=== PATIENT | female | born 1940 | race Caucasian/White ===

== ENCOUNTER 2018-02-20 15:25 | Inpatient (IN) | payer MEDICARE, OTHER ==
--- NOTE | 2018-02-20 15:41 | ED Physician Documentation ---
PD HPI NVD - Stated complaint Stated Complaint: GENERAL WEAKNESS - Chief complaint Chief Complaint: General - History obtained from History obtained from: Patient - History of Present Illness Timing - onset: How many weeks ago (5-6 weeks progressive weakness and fatigue.) Timing - details: Gradual onset, Still present Associated symptoms: No: Fever, Abdominal pain (has just had poor appetite and feeling of nausea for weeks, with graudally worsening general weakness.) Contributing factors: No: Sick contact, Bad food, Travel (she is in her apartment most of the time, and has friends help her with groceries/etc. She does not use walker, but uses furniture to help support herself walking around the apartment.) Similar symptoms before: Has not had sx before Recently seen: Not recently seen (went to the [facility] today as she was having her apartment mold cleaned out, so needed to be out of there for 2 days. Went to [facility] for place to be and eval of the weakness. They did not do any labs or such, but tried to find licensed social worker help with place to stay. Transferred her to us for further evaluation.) Review of Systems Constitutional: denies: Fever, Chills, Myalgias Nose: denies: Rhinorrhea / runny nose, Congestion Throat: denies: Sore throat Cardiac: denies: Chest pain / pressure, Palpitations Respiratory: denies: Dyspnea, Cough GI: reports: Bloody / black stool (dark stools but attributed it to supplements she takes.) : denies: Dysuria, Frequency Skin: denies: Rash, Lesions Musculoskeletal: denies: Neck pain, Back pain Neurologic: reports: Generalized weakness. denies: Focal weakness, Numbness, Near syncope Psychiatric: denies: Depressed, Anxiety Endocrine: denies: Weight gain Immunocompromised: denies: Immunocompromised PD PAST MEDICAL HISTORY - Past Medical History Cardiovascular: None Respiratory: None Neuro: None GI: None Psych: Depression Derm: Herpes zoster - Past Surgical History Past Surgical History: No - Present Medications Home Medications: Ambulatory Orders Medication Instructions Recorded Confirmed Cholecalciferol (Vitamin D3) 10,000 units PO DAILY 02/20/18 02/20/18 [Vitamin D3] - Allergies Allergies/Adverse Reactions: Allergies Allergy/AdvReac Type Severity Reaction Status Date / Time No Known Drug Allergies Allergy Verified 02/20/18 15:27 - Social History Does the pt smoke?: No Smoking Status: Never smoker Does the pt drink ETOH?: No Does the pt have substance abuse?: No PD ED PE NORMAL - Vitals Vital signs reviewed: Yes - General General: Alert and oriented X 3, No acute distress, Well developed/nourished - HEENT HEENT: Ears normal, Pharynx benign - Neck Neck: Supple, no meningeal sign, No adenopathy - Cardiac Cardiac: RRR, No murmur - Respiratory Respiratory: No respiratory distress, Clear bilaterally - Abdomen Abdomen: Normal bowel sounds, Soft, Non tender, Non distended - Female Female : Deferred - Rectal Rectal: Other (dark brown stool in vault, but it does test trace/speckled guiac positive. ) - Back Back: No CVA TTP - Derm Derm: Warm and dry. No: Normal color (very pale coloring) - Extremities Extremities: No deformity, No tenderness to palpate - Neuro Neuro: Alert and oriented X 3, No motor deficit, Normal speech - Psych Psych: Normal mood, Normal affect Results - Vitals Vitals: Vital Signs - 24 hr 02/20/18 15:23 Temperature 37.3 C Heart Rate 105 H Respiratory 18 Rate Blood Pressure 120/65 O2 Saturation 97 - EKG (time done) 16:54 Rate: Rate (enter#) (104) Rhythm: Sinus tachycardia [place]: Normal Intervals: Normal DE Ischemia: Normal ST segments. No: ST elevation c/w ischemia, ST depression - Labs Labs: Laboratory Tests 02/20/18 02/20/18 02/20/18 16:40 16:40 16:40 WBC 5.1 RBC 1.35 L Hgb 5.3 L* Hct 15.4 L* MCV 113.8 H MCH 38.9 H MCHC 34.2 RDW 15.0 Plt Count 43 L MPV 10.1 Neut # Not Reportable Lymph # Not Reportable [place] # Not Reportable Eos # Not Reportable Baso # Not Reportable Absolute Nucleated RBC Not Reportable Total Counted 100 Band Neuts % (Manual) 12 H Abnorm Lymph % (Manual) 0 Promyelocytes % 15 H Blast Cells % 12 H* Nucleated RBC % Not Reportable Neutrophils # (Manual) 2.2 Lymphocytes # (Manual) 0.9 L Monocytes # (Manual) 0.6 Eosinophils # (Manual) 0.0 Basophils # (Manual) 0.0 Nucleated RBCs 1 Differential Comment MANUAL DIFFERENTIAL Platelet Estimate DECREASED (<130,000) Platelet Morphology 1+ GIANT PLATELETS RBC Morph Micro Appear 1+ POLYCHROMASIA Sodium 131 L Potassium 2.7 L Chloride 94 L Carbon Dioxide 27 Anion Gap 10.0 BUN 15 Creatinine 0.7 Estimated GFR (MDRD) 81 L Glucose 127 H Calcium 7.9 L Magnesium 1.9 Iron TIBC % Saturation Transferrin Total Bilirubin 0.9 AST 30 ALT 17 Alkaline Phosphatase 35 L Total Protein 7.5 Albumin 2.9 L Globulin 4.6 H Albumin/Globulin Ratio 0.6 L Lipase 11 L Vitamin B12 Folate TSH 2.12 Slides for Path Review Indicated Blood Type Blood Type Recheck Antibody Screen Crossmatch IS Only 02/20/18 02/20/18 02/20/18 16:40 16:40 16:40 WBC RBC Hgb Hct MCV MCH MCHC RDW Plt Count MPV Neut # Lymph # [place] # Eos # Baso # Absolute Nucleated RBC Total Counted Band Neuts % (Manual) Abnorm Lymph % (Manual) Promyelocytes % Blast Cells % Nucleated RBC % Neutrophils # (Manual) Lymphocytes # (Manual) Monocytes # (Manual) Eosinophils # (Manual) Basophils # (Manual) Nucleated RBCs Differential Comment Platelet Estimate Platelet Morphology RBC Morph Micro Appear Sodium Potassium Chloride Carbon Dioxide Anion Gap BUN Creatinine Estimated GFR (MDRD) Glucose Calcium Magnesium Iron 53 TIBC 251 % Saturation 21 Transferrin 179 L Total Bilirubin AST ALT Alkaline Phosphatase Total Protein Albumin Globulin Albumin/Globulin Ratio Lipase Vitamin B12 664 Folate 42.00 TSH Slides for Path Review Blood Type Blood Type Recheck A POSITIVE Antibody Screen Crossmatch IS Only 02/20/18 17:02 WBC RBC Hgb Hct MCV MCH MCHC RDW Plt Count MPV Neut # Lymph # [place] # Eos # Baso # Absolute Nucleated RBC Total Counted Band Neuts % (Manual) Abnorm Lymph % (Manual) Promyelocytes % Blast Cells % Nucleated RBC % Neutrophils # (Manual) Lymphocytes # (Manual) Monocytes # (Manual) Eosinophils # (Manual) Basophils # (Manual) Nucleated RBCs Differential Comment Platelet Estimate Platelet Morphology RBC Morph Micro Appear Sodium Potassium Chloride Carbon Dioxide Anion Gap BUN Creatinine Estimated GFR (MDRD) Glucose Calcium Magnesium Iron TIBC % Saturation Transferrin Total Bilirubin AST ALT Alkaline Phosphatase Total Protein Albumin Globulin Albumin/Globulin Ratio Lipase Vitamin B12 Folate TSH Slides for Path Review Blood Type A POSITIVE Blood Type Recheck Antibody Screen NEGATIVE Crossmatch IS Only See Detail - Rads (name of study) chest xray Radiology: Prelim report reviewed, EMP read contemporaneously (no infiltrates) PD MEDICAL DECISION MAKING - ED course Complexity details: reviewed results, considered differential (could be dietary anemia but does have guiac positive traces so presume chronic and acute blood loss. She was having to be out of her apartment due to mold cleaning, which fortunately triggered her to get care for this weakness. ), d/w patient Departure - Departure Disposition: 66 [facility] DC/Xfer Clinical Impression: Guaiac positive stools, Hypokalemia, Generalized weakness Profound anemia Qualifiers: Anemia type: other cause Other causes of anemia: acute posthemorrhagic Qualified Code(s): D62 - Acute posthemorrhagic anemia Condition: Stable Record reviewed to determine appropriate education?: Yes Discharge Date/Time: 02/20/18 18:43
[2018-02-20 16:50] LABS: BASOPHILS % (AUTO) 0.2 %; EOSINOPHILS % (AUTO) 0.7 %; LYMPHOCYTES % (AUTO) 13.2 %; MEAN CORPUSCULAR HEMOGLOBIN 38.9 pg (27.0-31.0); MEAN CORPUSCULAR HGB CONC 34.2 g/dL (32.0-36.0); MEAN CORPUSCULAR VOLUME 113.8 fL (81.0-99.0); MEAN PLATELET VOLUME 10.1 fL (7.9-10.8); MONOCYTES % (AUTO) 42.1 %; NEUTROPHILS % (AUTO) 43.8 %; PLT - PLATELET COUNT 43 10^3/uL (130-450); RED BLOOD COUNT 1.35 10^6/uL (4.20-5.40); WHITE BLOOD COUNT 5.1 x10^3/uL (4.8-10.8)
[2018-02-20 16:52] LABS: HGB - HEMOGLOBIN 5.3 g/dL (12.0-16.0)
--- NOTE | 2018-02-20 16:53 | XRAY Preliminary Report ---
Exam: XR CHEST 2 VIEW X-RAY IMPRESSION: Multiple moderate patchy opacities are seen in the bilateral upper lobes most severe at t he lung apices, could represent infectious/inflammatory disease and/or areas of scarring/fibrosis. Orly ng malignancy is not excluded. Recommend a chest CT to further evaluate. [facility] SITE ID: [id number]
--- NOTE | 2018-02-20 16:53 | XRAY Report ---
EXAM: CHEST RADIOGRAPHY EXAM DATE: 02/20/2018 04:35 PM. CLINICAL HISTORY: Cough and fatigue. COMPARISON: None. TECHNIQUE: 2 views. FINDINGS: Lungs/Pleura: Multiple moderate patchy opacities are seen in the bilateral upper lobes most severe at the lung apices, could represent infectious/inflammatory disease and/or areas of scarring/fibrosis. Lung malignancy is not excluded. Recommend a chest CT to further evaluate. No pleural effusion or pne umothorax. Mediastinum: Heart size within normal limits. Mild deviation of the trachea to the right, could be du e to a tortuous aortic arch. IMPRESSION: Multiple moderate patchy opacities are seen in the bilateral upper lobes most severe at t he lung apices, could represent infectious/inflammatory disease and/or areas of scarring/fibrosis. Orly ng malignancy is not excluded. Recommend a chest CT to further evaluate. JUANJOSE Referring Provider Line: [phone] SITE ID: [id number]
[2018-02-20 16:54] LABS: ABNORMAL LYMPHS % (MANUAL) 0 %
[2018-02-20 17:00] LABS: ALBUMIN 2.9 g/dL (3.2-5.5); ALBUMIN/GLOBULIN RATIO 0.6 (1.0-2.2); BILIRUBIN,TOTAL 0.9 mg/dL (0.2-1.0); CALCIUM 7.9 mg/dL (8.5-10.3); CREATININE 0.7 mg/dL (0.4-1.0); MAGNESIUM 1.9 mg/dL (1.7-2.8); TOTAL PROTEIN 7.5 g/dL (6.7-8.2)
[2018-02-20 17:23] LABS: % IRON SATURATION 21 % (20-50); IRON 53 ug/dL (28-170); TOTAL IRON BINDING CAPACITY 251 ug/dL (250-450); TRANSFERRIN 179 mg/dL (192-382)
[2018-02-20] MEDS ORDERED: POTASSIUM CHLOR 10 MEQ/100 ML 10 MEQ/100 ML BAG IV ONE (17:27)
[2018-02-20] MEDS ORDERED: POTASSIUM BICARB 25 MEQ TABLET PO STA (17:27)
[2018-02-20 17:39] LABS: BAND NEUTROPHILS % (MANUAL) 12 %; LYMPHOCYTES # (MANUAL) 0.9 10^3/uL (1.5-3.5); LYMPHOCYTES % (MANUAL) 18 %; MONOCYTES # (MANUAL) 0.6 10^3/uL (0.0-1.0); NEUTROPHILS # (MANUAL) 2.2 10^3/uL (1.5-6.6); NEUTROPHILS % (MANUAL) 32 %
[2018-02-20 17:42] LABS: PLATELET MORPHOLOGY 1+ GIANT PLATELETS (NORMAL); PROMYELOCYTES % (MANUAL) 15 %
[2018-02-20 17:43] LABS: DIFFERENTIAL COMMENT MANUAL DIFFERENTIAL; PLATELET ESTIMATE, MANUAL DECREASED (<130,000) (NORMAL)
[2018-02-20] MEDS ORDERED: ONDANSETRON 4 MG/2 ML VIAL IVP PRN (18:11)
[2018-02-20] MEDS ORDERED: FUROSEMIDE 20 MG/2 ML VIAL IVP PRN (18:16)
[2018-02-20] MEDS ORDERED: diphenhydrAMINE 25 MG CAPSULE PO ONE (18:17)
[2018-02-20] MEDS ORDERED: IOPAMIDOL-300 100 ML VIAL ONE (18:44)
[2018-02-20] MEDS ORDERED: CEFEPIME 1 GM in SODIUM CHLORIDE 0.9% MINIBAG 100 ML IV SCH (19:00)
[2018-02-20] MEDS: POTASSIUM CHLOR 10 MEQ/100 ML 10 MEQ/100 ML BAG IV SCH ×3 (19:00→21:34)
--- NOTE | 2018-02-20 19:06 | HISTORY & PHYSICAL EXAMINATION ---
Chief Complaint - Chief Complaint Chief Complaint: profound weakness History of Present Illness - Admitted From Admitted From:: ER - History Obtained From History obtained from: pt - History of Present Illness HPI Comment/Other: This is a 77-year-old female with PMH of Depression, and Herpes Zoster, who, otherwise health until the last , presented to the emergency department complaining of profound weakness, a chronic cough and weight loss. Pt report she got sick in the last . She visited her naturopathic provider who started her on multiple supplementation including [id number] Vitamin C. Pt report she has been profound fatigue since the . She report she has been chronic cough with clear sputum as well. She state she lost weight between 5- 10 Lb since the , and loss of appetite, and some night sweating as well. She recognize she had dark stools but denies bryan blood in the stools since she had multiple supplementation. She denies fever, chill, chest pain, headache, shortness of breath, abdominal pain, PUD disease, nausea, vomiting, diarrhea, vision issue. She denies to take any NSAIDs. She denies recent travel as well. In the emergency department her H&H was noted to be 5.3/ 15.4. The occult blood stool test was positive in the ER. chest x-ray reveals multiple moderate patchy opacities in the bilateral upper lobes, most severe at the lung apices, which could represent infectious/inflammatory/fibrosis, lung malignancy is not excluded. Pt is currently hemodynamically stable with a normal blood pressure and heart rate. Pt was admitted to the medical service and presumed GI bleeding. History - Past Medical History Psych: reports: Depression Derm: reports: Herpes zoster - Family & Social History Family History: Mother: , CAD, Father: , Renal Disease/Failure, Sister: Alive and Well (without medical issue) Family History Comment/Other: pt is living alone at [place]. Living arrangement: At home Living Situation: Alone - Substance History Use: Uses substance without health or social issues: NONE Abuse: Recurrent use of substance despite neg consequences: NONE Dependence: Experiences withdrawal or developed tolerances: NONE - POLST Patient has POLST: No POLST Status: DNR Meds/Allgy - Home Medications Home Medications: Ambulatory Orders Medication Instructions Recorded Confirmed Cholecalciferol (Vitamin D3) 10,000 units PO DAILY 02/20/18 02/20/18 [Vitamin D3] - Allergies Allergies/Adverse Reactions: Allergies Allergy/AdvReac Type Severity Reaction Status Date / Time No Known Drug Allergies Allergy Verified 02/20/18 15:27 Review of Systems - Constitutional Constitutional: reports: Fatigue, Weakness, Poor appetite, Night sweats. denies : Fever, Chills, Malaise - Eyes Eyes: denies: Pain, Irritation, Amaurosis, Blurred vision, Spots in vision, Field loss, Vision loss, Dipolpia - Ears, Nose & Throat Ears, Nose & Throat: denies: Ear pain, Hearing loss, Hearing aids, Tinnitus, Vertigo, Nasal pain, Nasal discharge, Nosebleeds, Nasal congestion, Postnasal drainage, Dentures, Sore throat, Mouth lesions, Bleeding gums, Dental decay - Cardiovascular Cariovascular: denies: Irregular heart rate, Palpitations, Chest pain, Edema, Lightheadedness, Syncope, Exertional dyspnea, Decr. exercise tolerance, Orthopnea - Respiratory Respiratory: reports: Cough, Sputum production. denies: Wheezing, Snoring, Hemoptysis, Orthopnea, SOB at rest, SOB with exertion, Apnea, Pleuritic pain - Gastrointestinal Gastrointestinal: reports: Black stools. denies: Abdominal pain, Abdominal distention, Constipation, Diarrhea, Change in bowel habits, Rectal bleeding, Bloody stools, Nausea, Vomiting, Bile emesis, Bryan blood emesis, Coffee grounds emesis - Genitourinary Genitourinary: denies: Dysuria, Frequency, Urgency, Hematuria, Incontinence, Flank pain, Nocturia, Urethral discharge - Musculoskeletal Musculoskeletal: denies: Muscle pain, Back pain, Muscle aches, Stiffness, Limited range of motion, Muscle weakness, Gout, Joint pain, Joint swelling - Integumentary Integumentary: denies: Rash, Lesions, Dryness, Lumps, Pigment changes - Neurological Neurological: reports: General weakness. denies: Focal weakness, Headache, Dizziness, Numbness, Pre-existing deficit, Abnormal gait, Seizures, Incoordination, Slurred speech - Psychiatric Psychiatric: denies: Depression, Anxiety, Suicidal, Delusions, Hallucinations, Homicidal - Endocrine Endocrine: denies: Polyuria, Polydypsia, Polyphagia, Intolerance to cold, Intolerance to heat - Hematologic/Lymphatic Hematologic/Lymphatic: denies: Bruising, Petechiae, Blood clots, Lymphadenopathy , Bleeding tendencies Exam - Vital Signs Reviewed Vital Signs: Yes - Physical Exam General Appearance: positive: No acute distress, Alert. negative: Lethargic Eyes Bilateral: positive: Normal inspection, PERRL, No lid inflammation, Conjunctivae nml ENT: positive: ENT inspection nml, Pharynx nml, No signs of dehydration. negative: Purulent nasal drainage, Pharyngeal erythema, Oral lesions, Dry mucous membranes Neck: positive: Nml inspection, Thyroid nml, No JVD, Trachea midline. negative : Thyromegaly, Lymphadenopathy (R), Lymphadenopathy (L), Stiff neck, Carotid bruit, Swelling/bruising, Tracheal deviation Respiratory: positive: Chest non-tender, No respiratory distress, Breath sounds nml. negative: Wheezes, Rales, Rhonchi Cardiovascular: positive: Regular rate & rhythm, No murmur, No gallop. negative : Irregularly irregular, Extrasystoles, Tachycardia, Bradycardia, JVD present, Systolic murmur, Diastolic murmur Peripheral Pulses: positive: 2+ Abdomen: positive: Non-tender, No organomegaly, Nml bowel sounds, No distention. negative: Tenderness, Guarding, Rebound Back: positive: Nml inspection. negative: CVA tenderness (R), CVA tenderness (L ) Skin: positive: Color nml, No rash, Warm, Dry, Pallor. negative: Cyanosis, Diaphoresis Extremities: positive: Non-tender, Full ROM, Nml appearance. negative: Calf tenderness, Joint swelling, Ariana's sign/cords Neurologic/Psychiatric: positive: Oriented x3, Sensation nml, Mood/affect nml. negative: Sensory loss, Facial droop, Slurred/abnml speech, Depressed mood/ affect Conclusion/Plan - Problem List (1) Profound anemia Conclusion/Plan: Pt's H&H is 5/15 at ER, profound weakness. transfusion blood iron study, B12, folic acid continue H&H continue lab, monitor hold all pt's home supplements Qualifiers: Anemia type: other cause Other causes of anemia: acute posthemorrhagic Qualified Code(s): D62 - Acute posthemorrhagic anemia (2) Guaiac positive stools Conclusion/Plan: consult with surgeon, will follow up NPO with meds IVF (3) Generalized weakness Conclusion/Plan: May be caused profound anemia. transfusion of blood PT consult (4) Hypokalemia Conclusion/Plan: replacement of potassium daily lab monitor (5) Cough Conclusion/Plan: Order CT of chest to clarify the abnormal found in th CXR, follow up if antibiotics. pt is normal WBC, no fever, chill. hemadynamic stable now. culture of sputum, include yeast, ASF staining, follow up (6) DVT prophylaxis Conclusion/Plan: SCD (7) Do not intubate, cardiopulmonary resuscitation (CPR)-only code status Conclusion/Plan: pt request DNR - Lab Results Fish Bones: 02/21/18 08:38 02/21/18 08:38 Core Measures - Anticipated LOS I expect patient to be DC'd or transferred within 96 hours.: Yes - DVT/VTE - Prophylaxis VTE/DVT Device ordered at admit?: Yes VTE/DVT Prophylaxis med ordered at admit?: No Not Ordered - Medical Reason: Contraindicated (platelet is lower. INR 1.6)
[2018-02-20] MEDS: SODIUM CHLORIDE FLUSH 0.9% 10 ML SYRINGE IVP PRN ×3 (19:44→22:40)
[2018-02-20] MEDS: PANTOPRAZOLE 40 MG VIAL IVP SCH (19:44)
[2018-02-20] MEDS: SUCRALFATE 1 GM/10 ML UDC PO SCH (19:55)
[2018-02-20] MEDS ORDERED: IOPAMIDOL-300 100 ML VIAL IVP ONE (19:57)
[2018-02-20 20:16] LABS: BILIRUBIN,URINE NEGATIVE (NEGATIVE); GLUCOSE, URINE (UA) NEGATIVE (NEGATIVE); KETONES,URINE (UA) NEGATIVE (NEGATIVE); LEUKOCYTE ESTERASE, URINE NEGATIVE (NEGATIVE); NITRITE,URINE NEGATIVE (NEGATIVE); OCCULT BLOOD,URINE TRACE-LYSE (NEGATIVE); PROTEIN,URINE TRACE mg/dL (NEGATIVE); UROBILINOGEN,URINE 0.2 (NORMAL) E.U./dL (NORMAL)
[2018-02-20 20:19] LABS: CLARITY,URINE CLEAR (CLEAR)
--- NOTE | 2018-02-20 20:38 | CT Report ---
EXAM: CT CHEST EXAM DATE: 02/20/2018 07:57 PM. CLINICAL HISTORY: Shortness of breath. COMPARISONS: None. TECHNIQUE: Routine helical CT imaging was performed through the chest. IV contrast: 80 cc Isovue 300 IV. Reconstructions: Coronal and sagittal. In accordance with CT protocol optimization, one or more of the following dose reduction techniques w ere utilized for this exam: automated exposure control, adjustment of mA and/or KV based on patient s ize, or use of iterative reconstructive technique. FINDINGS: Lungs/Pleura: Lungs demonstrate multiple irregularly shaped and noncalcified pulmonary opacities. The re is bilateral apical consolidation with air bronchograms. There are peripheral areas of consolidati on with air bronchograms in the bilateral posterior upper lobes, lingula and superior segment right l ower lobe. There are patchy peribronchovascular irregular nodular densities. No significant bronchiec tasis is seen. There is no honeycombing. The lung volumes appear normal. Mediastinum: There is mild mediastinal and hilar lymphadenopathy. The heart size is normal. There is no pericardial effusion. There is a very small left pleural effusion. No thoracic aortic aneurysm or dissection. Bones: Unremarkable. Visualized Abdomen: Unremarkable. Other: None. IMPRESSION: 1. Multilobar patchy airspace alveolar opacities, including areas of confluence consolidation with ai r bronchograms. The differential diagnosis includes multilobar pneumonia, bronchiolitis obliterans or ganizing pneumonia, and drug reaction. 2. Mild mediastinal and hilar lymphadenopathy. 3. Very small left pleural effusion. [facility] Referring Provider Line: [phone] SITE ID: [id number]
[2018-02-21] MEDS: ACETAMINOPHEN 325 MG TABLET PO PRN ×4 (00:04→23:37)
[2018-02-21] MEDS: diphenhydrAMINE 25 MG CAPSULE PO PRN ×2 (00:38→04:56)
[2018-02-21] MEDS: SODIUM CHLORIDE FLUSH 0.9% 10 ML SYRINGE IVP SCH ×4 (04:59→23:39)
[2018-02-21] MEDS: SUCRALFATE 1 GM/10 ML UDC PO SCH ×4 (06:27→21:15)
[2018-02-21] MEDS: SODIUM CHLORIDE FLUSH 0.9% 10 ML SYRINGE IVP PRN ×2 (06:28→23:39)
[2018-02-21] MEDS: PANTOPRAZOLE 40 MG VIAL IVP SCH (06:28)
[2018-02-21] MEDS: POLYETHYLENE GLYCOL 3350 17 GM PACKET PO SCH (08:16)
[2018-02-21] MEDS: CEFEPIME 1 GM in SODIUM CHLORIDE 0.9% MINIBAG 100 ML IV SCH ×3 (08:33→21:15)
[2018-02-21 08:54] LABS: BASOPHILS % (AUTO) 0.3 %; EOSINOPHILS # (AUTO) 0.1 10^3/uL (0.0-0.7); EOSINOPHILS % (AUTO) 2.1 %; HGB - HEMOGLOBIN 7.2 g/dL (12.0-16.0); LYMPHOCYTES # (AUTO) 0.8 10^3/uL (1.5-3.5); MEAN CORPUSCULAR HEMOGLOBIN 34.7 pg (27.0-31.0); MEAN CORPUSCULAR HGB CONC 35.3 g/dL (32.0-36.0); MEAN CORPUSCULAR VOLUME 98.2 fL (81.0-99.0); MEAN PLATELET VOLUME 8.7 fL (7.9-10.8); MONOCYTES # (AUTO) 1.6 10^3/uL (0.0-1.0); MONOCYTES % (AUTO) 46.8 %; NEUTROPHILS # (AUTO) 0.9 10^3/uL (1.5-6.6); NEUTROPHILS % (AUTO) 25.8 %; RED BLOOD COUNT 2.08 10^6/uL (4.20-5.40); RED CELL DISTRIBUTION WIDTH 23.2 % (12.0-15.0); WHITE BLOOD COUNT 3.3 x10^3/uL (4.8-10.8)
[2018-02-21] MEDS ORDERED: CHOLECALCIFEROL 5,000 UNIT CAPSULE PO SCH (09:00)
[2018-02-21 09:01] LABS: CALCIUM 7.5 mg/dL (8.5-10.3); CREATININE 0.6 mg/dL (0.4-1.0); PLT - PLATELET COUNT 33 10^3/uL (130-450)
[2018-02-21 09:10] LABS: RBC MORPHOLOGY (MULTIPLE) 3+ ANISOCYTOSIS (NORMAL)
[2018-02-21] MEDS ORDERED: POTASSIUM CHLORIDE 20 MEQ TABLET PO SCH (09:18)
[2018-02-21] MEDS: levoFLOXacin 500 MG/100 ML 500 MG/100 ML BAG IV SCH (09:18)
--- NOTE | 2018-02-21 09:42 | CONSULTATION NOTE ---
Referring Provider Name of Referring Provider:: KUSHAL Manning Consult Date: 02/21/18 Chief Complaint - Chief Complaint Chief Complaint: Anemia, heme positive stool History of Present Illness - History of Present Illness HPI Comment/Other: This is a 77-year-old female who presented to the emergency department yesterday complaining of profound weakness and a chronic cough. Upon evaluation in the emergency department her H&H was noted to be 5/15. She was noted to be hemodynamically stable with a normal blood pressure and heart rate. An occult blood stool test was performed which was positive. She also is complaining of a chronic cough and a chest x-ray and CT were performed. This demonstrates Multi lobar bilateral airspace disease possibly consistent with pneumonia. She was admitted to the medical service and a surgical consultation obtained for presumed GI bleed. She was transfused 2 units of packed red blood cells and her H&H has increased to 7 over 20. Additionally she is noted to be thrombocytopenic. She states that for the past several months she has felt more fatigued and has had a chronic cough. She saw her naturopathic provider who started her on multiple supplementation medications back in October. She states that her cough improved but she did continue to feel weak. She states that since she started those supplementations she has had quite dark stools. She denies any bryan blood in her stools. She denies any upper GI complaints including GERD or epigastric pain. She has no history of peptic ulcer disease, gastritis or esophagitis. She does not take any NSAIDs. She has never had a colonoscopy or an EGD. History - Past Medical History Cardiovascular: reports: None Respiratory: reports: None Neuro: reports: None Endocrine/Autoimmune: reports: None GI: reports: None : reports: None HEENT: reports: None Psych: reports: Depression Musculoskeletal: reports: None Derm: reports: Herpes zoster Meds/Allgy - Home Medications Home Medications: Ambulatory Orders Medication Instructions Recorded Confirmed Cholecalciferol (Vitamin D3) 10,000 units PO DAILY 02/20/18 02/20/18 [Vitamin D3] - Allergies Allergies/Adverse Reactions: Allergies Allergy/AdvReac Type Severity Reaction Status Date / Time No Known Drug Allergies Allergy Verified 02/20/18 15:27 Review of Systems - Constitutional Constitutional: reports: Fatigue, Malaise, Weakness. denies: Fever - Cardiovascular Cariovascular: denies: Palpitations - Respiratory Respiratory: reports: Cough. denies: Sputum production - Gastrointestinal Gastrointestinal: denies: Abdominal pain, Abdominal distention, Constipation, Diarrhea, Change in bowel habits, Rectal bleeding, Black stools, Bloody stools, Nausea, Vomiting, Bryan blood emesis - Neurological Neurological: reports: General weakness Exam - Vital Signs Vital Signs: Vital Signs x48h Temp Pulse Pulse Resp BP BP Pulse Ox 02/21/18 08:29 37.1 C 98 16 114/65 02/21/18 07:50 37.3 C 99 18 101/53 L 92 02/21/18 05:50 36.9 C 96 18 113/51 L 02/21/18 05:40 37.2 C 98 18 116/58 L 02/21/18 05:20 37.6 C H 98 20 112/47 L 02/21/18 04:31 37.3 C 109 H 18 115/51 L 93 - Physical Exam General Appearance: positive: No acute distress, Other (pale in appearence) Respiratory: positive: No respiratory distress, Breath sounds nml Cardiovascular: positive: Regular rate & rhythm Abdomen: positive: Non-tender, No organomegaly. negative: Tenderness, Guarding Extremities: positive: No pedal edema Neurologic/Psychiatric: positive: Oriented x3 Conclusion/Plan - Diagnosis Diagnosis: Anemia, heme positive stools, pancytopenia - Plan Plan: The patient's profound anemia and heme positive stools are concerning for a possible GI bleed. I would like the patient to receive an additional unit of PRBC and obtain coagulation studies prior to proceeding with EGD. I did explain that if the EGD is normal she may require a colonoscopy as an outpatient. The EGD was explained to the patient in detail including potential risks involved including but not limited to bleeding and perforation and she agrees to proceed. - Lab Results Fish Bones: 02/21/18 08:38 02/21/18 08:38
[2018-02-21 10:10] LABS: INR 1.6 (0.8-1.2); PT - PROTHROMBIN TIME 17.9 secs (9.9-12.6)
[2018-02-21] MEDS ORDERED: MIDAZOLAM 2 MG/2 ML VIAL IVP ONE (11:02)
[2018-02-21] MEDS ORDERED: KETAMINE 500 MG/10 ML VIAL IVP ONE (11:02)
[2018-02-21] MEDS ORDERED: GLYCOPYRROLATE 1 MG/5 ML VIAL IVP ONE (11:02)
[2018-02-21] MEDS ORDERED: SODIUM CHLORIDE 0.9% 1,000 ML IV ONE (11:53)
[2018-02-21] MEDS ORDERED: BENZOCAINE/TETRACAINE/BUTAMBEN SPRAY 56 GM TOP ONE (11:57)
[2018-02-21] MEDS ORDERED: SODIUM CHLORIDE 0.9% 1,000 ML IV SCH ×2 (12:00→12:21)
--- NOTE | 2018-02-21 14:18 | PROVIDER PROGRESS NOTE ---
Subjective - Prog Note Date Prog Note Date: 02/21/18 - Subjective Pt reports feeling: Improved Subjective: pt state she feel better after she had three units of blood. Pt report she did not have much cough now and decline meds of cough suppression. pt denies fever, chill, chest pain, headache. Current Medications - Current Medications Current Medications: Active Medications Acetaminophen (Tylenol) 650 mg PO Q4HR PRN PRN Reason: Pain 1 to 4 Last Admin: 02/21/18 10:59 Dose: 650 mg Diphenhydramine HCl (Benadryl) 25 mg PO Q4HR PRN PRN Reason: Allergy Symptoms Last Admin: 02/21/18 04:56 Dose: 25 mg Ferrous Sulfate (Feosol) 325 mg PO DAILYWM [facility] Furosemide (Lasix Inj 20mg Vial) 20 mg IVP ONCE PRN PRN Reason: Between units Stop: 02/21/18 18:15 Cefepime HCl 1 gm/ Sodium (Chloride) 100 mls @ 200 mls/hr IV TID [facility] Last Admin: 02/21/18 13:45 Dose: 200 mls/hr Levofloxacin (Levaquin 500 Mg/100 Ml) 500 mg in 100 mls @ 100 mls/hr IV DAILY [facility] Last Infusion: 02/21/18 10:25 Dose: Infused Sodium Chloride (Normal Saline 0.9%) 1,000 mls @ 75 mls/hr IV .[id number] [facility] Ondansetron HCl (Zofran Inj) 4 mg IVP Q6HR PRN PRN Reason: Nausea / Vomiting Pantoprazole Sodium (Protonix) 40 mg IVP DAILY [facility] Polyethylene Glycol (Miralax) 17 gm PO DAILY [facility] Last Admin: 02/21/18 08:16 Dose: Not Given Sodium Chloride (Normal Saline Flush 0.9%) 10 ml IVP PRN PRN PRN Reason: NEEDED PER PROVIDER ORDERS Last Admin: 02/21/18 06:28 Dose: 10 ml Sodium Chloride (Normal Saline Flush 0.9%) 10 ml IVP 0100,0900,1700 [facility] Last Admin: 02/21/18 08:36 Dose: 10 ml Sucralfate (Carafate) 1 gm PO 0700,1100,1600,2200 [facility] Last Admin: 02/21/18 10:59 Dose: 1 gm Cholecalciferol (Vitamin D3) [Vitamin D3] 10,000 units PO DAILY 02/20/18 Objective - Vital Signs/Intake & Output Reviewed Vital Signs: Yes Vital Signs: Vital Signs x48h Temp Pulse Pulse Resp BP BP BP 02/21/18 13:35 37.3 C 111 H 18 107/57 L 02/21/18 13:21 37.3 C 124 H 18 115/57 L 02/21/18 12:45 37.0 C 110 H 18 115/57 L 02/21/18 12:31 02/21/18 12:14 02/21/18 11:29 37.0 C 97 18 118/58 L 02/21/18 11:14 37.2 C 94 16 111/56 L 02/21/18 08:29 37.1 C 98 16 114/65 02/21/18 07:50 37.3 C 99 18 101/53 L Pulse Ox 02/21/18 13:35 02/21/18 13:21 95 02/21/18 12:45 95 02/21/18 12:31 95 02/21/18 12:14 96 02/21/18 11:29 02/21/18 11:14 02/21/18 08:29 02/21/18 07:50 92 Intake & Output: Intake & Output 02/18/18 02/19/18 02/20/18 02/21/18 23:59 23:59 23:59 23:59 Intake Total 500 1259 Output Total 1100 400 Balance -600 859 - Objective General Appearance: positive: No acute distress, Alert. negative: Lethargic Eyes Bilateral: positive: Normal inspection, PERRL, No lid inflammation, Conjunctivae nml ENT: positive: ENT inspection nml, Pharynx nml, No signs of dehydration. negative: Purulent nasal drainage, Pharyngeal erythema, Oral lesions, Dry mucous membranes Neck: positive: Nml inspection, Thyroid nml, No JVD, Trachea midline. negative : Thyromegaly, Lymphadenopathy (R), Lymphadenopathy (L), Stiff neck, Carotid bruit, Swelling/bruising, Tracheal deviation Respiratory: positive: Chest non-tender, No respiratory distress. negative: Wheezes, Rales, Rhonchi Cardiovascular: positive: Regular rate & rhythm, No murmur, No gallop. negative : Irregularly irregular, Extrasystoles, Tachycardia, Bradycardia, JVD present, Systolic murmur, Diastolic murmur Peripheral Pulses: 2+ Radial (R), 2+ Radial (L), 2+ Dorsalis pedis (R), 2+ Dorsalis pedis (L) Abdomen: positive: Non-tender, No organomegaly, Nml bowel sounds, No distention. negative: Tenderness, Guarding, Rebound Back: positive: Nml inspection. negative: CVA tenderness (R), CVA tenderness (L ) Skin: positive: Color nml, No rash, Warm, Dry. negative: Cyanosis, Diaphoresis , Pallor Extremities: positive: Non-tender, Full ROM, Nml appearance. negative: Calf tenderness, Joint swelling, Ariana's sign/cords Neurologic/Psychiatric: positive: Oriented x3, Sensation nml, Mood/affect nml. negative: Weakness, Sensory loss, Facial droop, Slurred/abnml speech, Depressed mood/affect - Lab Results Fish Bones: 02/21/18 08:38 02/21/18 08:38 Other Labs: Lab Results x24hrs 02/21/18 02/21/18 02/21/18 Range/Units 09:54 08:38 08:38 WBC 3.3 L (4.8-10.8) x10^3/uL RBC 2.08 L (4.20-5.40) 10^6/uL Hgb 7.2 L (12.0-16.0) g/dL Hct 20.4 L (37.0-47.0) % MCV 98.2 (81.0-99.0) fL MCH 34.7 H (27.0-31.0) pg MCHC 35.3 (32.0-36.0) g/dL RDW 23.2 H (12.0-15.0) % Plt Count 33 L* (130-450) 10^3/uL MPV 8.7 (7.9-10.8) fL Neut # 0.9 L (1.5-6.6) 10^3/uL Lymph # 0.8 L (1.5-3.5) 10^3/uL Bell # 1.6 H (0.0-1.0) 10^3/uL Eos # 0.1 (0.0-0.7) 10^3/uL Baso # 0.0 (0.0-0.1) 10^3/uL Absolute Nucleated RBC 0.06 x10^3/uL Nucleated RBC % 1.7 /100WBC Manual Slide Review Indicated RBC Morph Micro Appear 3+ ANISOCYTOSIS (NORMAL) PT 17.9 H (9.9-12.6) secs INR 1.6 H (0.8-1.2) APTT 23.9 L (24.9-33.3) secs Sodium 136 (135-145) mmol/L Potassium 3.2 L (3.5-5.0) mmol/L Chloride 103 (101-111) mmol/L Carbon Dioxide 25 (21-32) mmol/L Anion Gap 8.0 (6-13) BUN 13 (6-20) mg/dL Creatinine 0.6 (0.4-1.0) mg/dL Estimated GFR (MDRD) 97 (>89) Glucose 101 H (70-100) mg/dL Calcium 7.5 L (8.5-10.3) mg/dL Urine Color Urine Clarity (CLEAR) Urine pH (5.0-7.5) PH Ur Specific Schaller (1.002-1.030) Urine Protein (NEGATIVE) mg/dL Urine Glucose (UA) (NEGATIVE) mg/dL Urine Ketones (NEGATIVE) mg/dL Urine Occult Blood (NEGATIVE) Urine Nitrite (NEGATIVE) Urine Bilirubin (NEGATIVE) Urine Urobilinogen (NORMAL) E.U./dL Ur Leukocyte Esterase (NEGATIVE) Ur Microscopic Review Urine Culture Comments 02/20/18 Range/Units 19:48 WBC (4.8-10.8) x10^3/uL RBC (4.20-5.40) 10^6/uL Hgb (12.0-16.0) g/dL Hct (37.0-47.0) % MCV (81.0-99.0) fL MCH (27.0-31.0) pg MCHC (32.0-36.0) g/dL RDW (12.0-15.0) % Plt Count (130-450) 10^3/uL MPV (7.9-10.8) fL Neut # (1.5-6.6) 10^3/uL Lymph # (1.5-3.5) 10^3/uL Bell # (0.0-1.0) 10^3/uL Eos # (0.0-0.7) 10^3/uL Baso # (0.0-0.1) 10^3/uL Absolute Nucleated RBC x10^3/uL Nucleated RBC % /100WBC Manual Slide Review RBC Morph Micro Appear (NORMAL) PT (9.9-12.6) secs INR (0.8-1.2) APTT (24.9-33.3) secs Sodium (135-145) mmol/L Potassium (3.5-5.0) mmol/L Chloride (101-111) mmol/L Carbon Dioxide (21-32) mmol/L Anion Gap (6-13) BUN (6-20) mg/dL Creatinine (0.4-1.0) mg/dL Estimated GFR (MDRD) (>89) Glucose (70-100) mg/dL Calcium (8.5-10.3) mg/dL Urine Color YELLOW Urine Clarity CLEAR (CLEAR) Urine pH 6.0 (5.0-7.5) PH Ur Specific Schaller <=1.005 (1.002-1.030) Urine Protein TRACE (NEGATIVE) mg/dL Urine Glucose (UA) NEGATIVE (NEGATIVE) mg/dL Urine Ketones NEGATIVE (NEGATIVE) mg/dL Urine Occult Blood TRACE-LYSE (NEGATIVE) Urine Nitrite NEGATIVE (NEGATIVE) Urine Bilirubin NEGATIVE (NEGATIVE) Urine Urobilinogen 0.2 (NORMAL) (NORMAL) E.U./dL Ur Leukocyte Esterase NEGATIVE (NEGATIVE) Ur Microscopic Review NOT INDICATED Urine Culture Comments NOT INDICATED Assessment/Plan - Problem List (1) Profound anemia Impression: (1) Profound anemia Conclusion/Plan: pt had total three units of blood continue H&H add ferrous sulf Pt's H&H is 04/09 at ER, profound weakness. transfusion blood iron study, B12, folic acid continue H&H continue lab, monitor hold all pt's home supplements (2) Guaiac positive stools Conclusion/Plan: pt had EGD, there no ulcer at upper GI tract, per surgeon report. 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 reduce PPI to daily will hold Carafet consult with surgeon, will follow up NPO with meds IVF (3) Generalized weakness Conclusion/Plan: continue PT May be caused profound anemia. transfusion of blood PT consult (4) Hypokalemia Conclusion/Plan: today K is 3.2, continue replacement replacement of potassium daily lab monitor (5) pneumonia/Cough CT of chest indicate pneumonia order lactic acid add cefepim and Levaquin follow up culture if add anti-fungal (6) thrombocytopenia today pt's Plt is 33, surgeon recommend plt replacement order plt replacement follow up lab test Qualifiers: Anemia type: other cause Other causes of anemia: acute posthemorrhagic Qualified Code(s): D62 - Acute posthemorrhagic anemia
[2018-02-21 14:47] LABS: HGB - HEMOGLOBIN 8.4 g/dL (12.0-16.0)
[2018-02-21 20:27] LABS: HGB - HEMOGLOBIN 8.4 g/dL (12.0-16.0)
[2018-02-22 02:51] LABS: HGB - HEMOGLOBIN 7.8 g/dL (12.0-16.0)
[2018-02-22 05:25] LABS: INR 1.7 (0.8-1.2); PT - PROTHROMBIN TIME 18.8 secs (9.9-12.6)
[2018-02-22 05:32] LABS: BASOPHILS % (AUTO) 0.2 %; EOSINOPHILS % (AUTO) 2.7 %; HGB - HEMOGLOBIN 7.9 g/dL (12.0-16.0); LYMPHOCYTES % (AUTO) 26.4 %; MEAN CORPUSCULAR HEMOGLOBIN 33.2 pg (27.0-31.0); MEAN CORPUSCULAR VOLUME 97.6 fL (81.0-99.0); MEAN PLATELET VOLUME 8.5 fL (7.9-10.8); MONOCYTES % (AUTO) 47.2 %; NEUTROPHILS % (AUTO) 23.5 %; PLT - PLATELET COUNT 102 10^3/uL (130-450); RED BLOOD COUNT 2.37 10^6/uL (4.20-5.40); RED CELL DISTRIBUTION WIDTH 22.8 % (12.0-15.0)
[2018-02-22 05:33] LABS: ALBUMIN 2.4 g/dL (3.2-5.5); ALBUMIN/GLOBULIN RATIO 0.6 (1.0-2.2); CALCIUM 7.5 mg/dL (8.5-10.3); CREATININE 0.5 mg/dL (0.4-1.0); MAGNESIUM 1.7 mg/dL (1.7-2.8); TOTAL PROTEIN 6.2 g/dL (6.7-8.2)
[2018-02-22 05:45] LABS: ABNORMAL LYMPHS % (MANUAL) 0 %
[2018-02-22 06:18] LABS: NEUTROPHILS % (MANUAL) 21 %
[2018-02-22 06:20] LABS: BAND NEUTROPHILS % (MANUAL) 2 %; LYMPHOCYTES # (MANUAL) 1.1 10^3/uL (1.5-3.5); LYMPHOCYTES % (MANUAL) 35 %; METAMYELOCYTES % (MANUAL) 2 %; MONOCYTES # (MANUAL) 0.5 10^3/uL (0.0-1.0); MYELOCYTES % (MANUAL) 2 %; NEUTROPHILS # (MANUAL) 0.7 10^3/uL (1.5-6.6); PROMYELOCYTES % (MANUAL) 10 %
[2018-02-22 06:21] LABS: DIFFERENTIAL COMMENT MANUAL DIFFERENTIAL; PLATELET ESTIMATE, MANUAL DECREASED (<130,000) (NORMAL)
[2018-02-22] MEDS: SODIUM CHLORIDE FLUSH 0.9% 10 ML SYRINGE IVP PRN ×2 (06:26→08:40)
[2018-02-22] MEDS: CEFEPIME 1 GM in SODIUM CHLORIDE 0.9% MINIBAG 100 ML IV SCH ×3 (06:26→22:08)
[2018-02-22] MEDS: SUCRALFATE 1 GM/10 ML UDC PO SCH ×2 (06:34→12:02)
[2018-02-22] MEDS ORDERED: POTASSIUM CHLORIDE 20 MEQ TABLET PO ONE (08:10)
[2018-02-22] MEDS: POLYETHYLENE GLYCOL 3350 17 GM PACKET PO SCH (08:19)
[2018-02-22] MEDS: levoFLOXacin 500 MG/100 ML 500 MG/100 ML BAG IV SCH (08:35)
[2018-02-22] MEDS: FERROUS SULFATE 325 MG TABLET PO SCH (08:35)
[2018-02-22] MEDS: SODIUM CHLORIDE FLUSH 0.9% 10 ML SYRINGE IVP SCH ×2 (08:36→22:08)
[2018-02-22] MEDS: PANTOPRAZOLE 40 MG VIAL IVP SCH (08:39)
[2018-02-22] MEDS: POTASSIUM CHLOR 10 MEQ/100 ML 10 MEQ/100 ML BAG IV SCH ×2 (09:57→11:05)
[2018-02-22] MEDS ORDERED: CALCIUM GLUCONATE 1,000 MG in SODIUM CHLORIDE 0.9% 50 ML IV ONE (11:00)
--- NOTE | 2018-02-22 12:32 | PROVIDER PROGRESS NOTE ---
Subjective - Prog Note Date Prog Note Date: 02/22/18 - Subjective Pt reports feeling: Improved Subjective: pt report she feel better, cough is better controlled. She denies chest pain, shortness of breath. Current Medications - Current Medications Current Medications: Active Medications Acetaminophen (Tylenol) 650 mg PO Q4HR PRN PRN Reason: Pain 1 to 4 Last Admin: 02/21/18 23:37 Dose: 650 mg Diphenhydramine HCl (Benadryl) 25 mg PO Q4HR PRN PRN Reason: Allergy Symptoms Last Admin: 02/21/18 04:56 Dose: 25 mg Ferrous Sulfate (Feosol) 325 mg PO DAILYWM [facility] Last Admin: 02/22/18 08:35 Dose: 325 mg Cefepime HCl 1 gm/ Sodium (Chloride) 100 mls @ 200 mls/hr IV TID [facility] Last Infusion: 02/22/18 07:03 Dose: Infused Levofloxacin (Levaquin 500 Mg/100 Ml) 500 mg in 100 mls @ 100 mls/hr IV DAILY [facility] Last Infusion: 02/22/18 09:40 Dose: Infused Ondansetron HCl (Zofran Inj) 4 mg IVP Q6HR PRN PRN Reason: Nausea / Vomiting Pantoprazole Sodium (Protonix) 40 mg IVP DAILY [facility] Last Admin: 02/22/18 08:39 Dose: 40 mg Polyethylene Glycol (Miralax) 17 gm PO DAILY [facility] Last Admin: 02/22/18 08:19 Dose: Not Given Sodium Chloride (Normal Saline Flush 0.9%) 10 ml IVP PRN PRN PRN Reason: NEEDED PER PROVIDER ORDERS Last Admin: 02/22/18 08:40 Dose: 10 ml Sodium Chloride (Normal Saline Flush 0.9%) 10 ml IVP 0100,0900,1700 [facility] Last Admin: 02/22/18 08:36 Dose: 10 ml Sucralfate (Carafate) 1 gm PO 0700,1100,1600,2200 [facility] Last Admin: 02/22/18 12:02 Dose: 1 gm Cholecalciferol (Vitamin D3) [Vitamin D3] 10,000 units PO DAILY 02/20/18 Objective - Vital Signs/Intake & Output Reviewed Vital Signs: Yes Vital Signs: Vital Signs x48h Temp Pulse Pulse Resp BP BP Pulse Ox 02/22/18 10:40 103 H 119/62 02/22/18 09:27 37.0 C 95 18 104/50 L 94 Intake & Output: Intake & Output 02/19/18 02/20/18 02/21/18 02/22/18 23:59 23:59 23:59 23:59 Intake Total 500 2985 760 Output Total 1100 400 Balance -600 2585 760 - Objective General Appearance: positive: No acute distress, Alert. negative: Lethargic Eyes Bilateral: positive: Normal inspection, PERRL, No lid inflammation, Conjunctivae nml ENT: positive: ENT inspection nml, Pharynx nml, No signs of dehydration. negative: Purulent nasal drainage, Pharyngeal erythema, Oral lesions Neck: positive: Nml inspection, Thyroid nml, No JVD, Trachea midline. negative : Thyromegaly, Lymphadenopathy (R), Lymphadenopathy (L), Stiff neck, Carotid bruit, Swelling/bruising, Tracheal deviation Respiratory: positive: Chest non-tender, No respiratory distress. negative: Wheezes, Rales, Rhonchi Cardiovascular: positive: Regular rate & rhythm, No murmur, No gallop. negative : Irregularly irregular, Extrasystoles, Tachycardia, Bradycardia, Systolic murmur, Diastolic murmur Peripheral Pulses: 2+ Radial (R), 2+ Radial (L), 2+ Dorsalis pedis (R), 2+ Dorsalis pedis (L) Abdomen: positive: Non-tender, No organomegaly, Nml bowel sounds, No distention. negative: Tenderness, Guarding, Rebound Back: positive: Nml inspection. negative: CVA tenderness (R), CVA tenderness (L ) Skin: positive: Color nml, No rash, Warm, Dry. negative: Cyanosis, Diaphoresis , Pallor Extremities: positive: Non-tender, Full ROM, Nml appearance. negative: Calf tenderness, Joint swelling, Ariana's sign/cords Neurologic/Psychiatric: positive: Oriented x3, Sensation nml, Mood/affect nml. negative: Weakness, Sensory loss, Facial droop, Slurred/abnml speech, Depressed mood/affect - Lab Results Fish Bones: 02/22/18 05:05 02/22/18 05:05 Other Labs: Lab Results x24hrs 03/30/18 03/30/18 03/30/18 Range/Units 05:05 05:05 05:05 WBC 3.0 L (4.8-10.8) x10^3/uL RBC 2.37 L (4.20-5.40) 10^6/uL Hgb 7.9 L (12.0-16.0) g/dL Hct 23.1 L (37.0-47.0) % MCV 97.6 (81.0-99.0) fL MCH 33.2 H (27.0-31.0) pg MCHC 34.0 (32.0-36.0) g/dL RDW 22.8 H (12.0-15.0) % Plt Count 102 L (130-450) 10^3/uL MPV 8.5 (7.9-10.8) fL Neut # Not Reportable Lymph # Not Reportable Parmer # Not Reportable Eos # Not Reportable Baso # Not Reportable Absolute Nucleated RBC Not Reportable Total Counted 100 Band Neuts % (Manual) 2 (0 - 10) % Abnorm Lymph % (Manual) 0 % Metamyelocytes % 2 H ( - 0) % Myelocytes % 2 H ( - 0) % Promyelocytes % 10 H ( - 0) % Blast Cells % 9 H* % Nucleated RBC % Not Reportable Neutrophils # (Manual) 0.7 L (1.5-6.6) 10^3/uL Lymphocytes # (Manual) 1.1 L (1.5-3.5) 10^3/uL Monocytes # (Manual) 0.5 (0.0-1.0) 10^3/uL Eosinophils # (Manual) 0.0 (0-0.7) 10^3/uL Basophils # (Manual) 0.0 (0-0.1) 10^3/uL Differential Comment MANUAL DIFFERENTIAL Platelet Estimate DECREASED (<130,000) (NORMAL) RBC Morph Micro Appear 1+ OVALOCYTES (NORMAL) PT (9.9-12.6) secs INR (0.8-1.2) Sodium 137 (135-145) mmol/L Potassium 3.2 L (3.5-5.0) mmol/L Chloride 105 (101-111) mmol/L Carbon Dioxide 26 (21-32) mmol/L Anion Gap 6.0 (6-13) BUN 11 (6-20) mg/dL Creatinine 0.5 (0.4-1.0) mg/dL Estimated GFR (MDRD) 120 (>89) Glucose 103 H (70-100) mg/dL Lactic Acid 0.8 (0.5-2.2) mmol/L Calcium 7.5 L (8.5-10.3) mg/dL Magnesium 1.7 (1.7-2.8) mg/dL Total Bilirubin 1.0 (0.2-1.0) mg/dL AST 25 (10-42) IU/L ALT 13 (10-60) IU/L Alkaline Phosphatase 31 L (42-121) IU/L Total Protein 6.2 L (6.7-8.2) g/dL Albumin 2.4 L (3.2-5.5) g/dL Globulin 3.8 (2.1-4.2) g/dL Albumin/Globulin Ratio 0.6 L (1.0-2.2) 02/22/18 02/22/18 02/21/18 Range/Units 05:05 02:44 20:17 WBC (4.8-10.8) x10^3/uL RBC (4.20-5.40) 10^6/uL Hgb 7.8 L 8.4 L (12.0-16.0) g/dL Hct 23.1 L 24.8 L (37.0-47.0) % MCV (81.0-99.0) fL MCH (27.0-31.0) pg MCHC (32.0-36.0) g/dL RDW (12.0-15.0) % Plt Count (130-450) 10^3/uL MPV (7.9-10.8) fL Neut # Lymph # Parmer # Eos # Baso # Absolute Nucleated RBC Total Counted Band Neuts % (Manual) (0 - 10) % Abnorm Lymph % (Manual) % Metamyelocytes % ( - 0) % Myelocytes % ( - 0) % Promyelocytes % ( - 0) % Blast Cells % % Nucleated RBC % Neutrophils # (Manual) (1.5-6.6) 10^3/uL Lymphocytes # (Manual) (1.5-3.5) 10^3/uL Monocytes # (Manual) (0.0-1.0) 10^3/uL Eosinophils # (Manual) (0-0.7) 10^3/uL Basophils # (Manual) (0-0.1) 10^3/uL Differential Comment Platelet Estimate (NORMAL) RBC Morph Micro Appear (NORMAL) PT 18.8 H (9.9-12.6) secs INR 1.7 H (0.8-1.2) Sodium (135-145) mmol/L Potassium (3.5-5.0) mmol/L Chloride (101-111) mmol/L Carbon Dioxide (21-32) mmol/L Anion Gap (6-13) BUN (6-20) mg/dL Creatinine (0.4-1.0) mg/dL Estimated GFR (MDRD) (>89) Glucose (70-100) mg/dL Lactic Acid (0.5-2.2) mmol/L Calcium (8.5-10.3) mg/dL Magnesium (1.7-2.8) mg/dL Total Bilirubin (0.2-1.0) mg/dL AST (10-42) IU/L ALT (10-60) IU/L Alkaline Phosphatase (42-121) IU/L Total Protein (6.7-8.2) g/dL Albumin (3.2-5.5) g/dL Globulin (2.1-4.2) g/dL Albumin/Globulin Ratio (1.0-2.2) 02/21/18 02/21/18 Range/Units 14:39 08:38 WBC (4.8-10.8) x10^3/uL RBC (4.20-5.40) 10^6/uL Hgb 8.4 L (12.0-16.0) g/dL Hct 24.0 L (37.0-47.0) % MCV (81.0-99.0) fL MCH (27.0-31.0) pg MCHC (32.0-36.0) g/dL RDW (12.0-15.0) % Plt Count (130-450) 10^3/uL MPV (7.9-10.8) fL Neut # Lymph # Parmer # Eos # Baso # Absolute Nucleated RBC Total Counted Band Neuts % (Manual) (0 - 10) % Abnorm Lymph % (Manual) % Metamyelocytes % ( - 0) % Myelocytes % ( - 0) % Promyelocytes % ( - 0) % Blast Cells % % Nucleated RBC % Neutrophils # (Manual) (1.5-6.6) 10^3/uL Lymphocytes # (Manual) (1.5-3.5) 10^3/uL Monocytes # (Manual) (0.0-1.0) 10^3/uL Eosinophils # (Manual) (0-0.7) 10^3/uL Basophils # (Manual) (0-0.1) 10^3/uL Differential Comment Platelet Estimate (NORMAL) RBC Morph Micro Appear (NORMAL) PT (9.9-12.6) secs INR (0.8-1.2) Sodium (135-145) mmol/L Potassium (3.5-5.0) mmol/L Chloride (101-111) mmol/L Carbon Dioxide (21-32) mmol/L Anion Gap (6-13) BUN (6-20) mg/dL Creatinine (0.4-1.0) mg/dL Estimated GFR (MDRD) (>89) Glucose (70-100) mg/dL Lactic Acid (0.5-2.2) mmol/L Calcium (8.5-10.3) mg/dL Magnesium 1.9 (1.7-2.8) mg/dL Total Bilirubin (0.2-1.0) mg/dL AST (10-42) IU/L ALT (10-60) IU/L Alkaline Phosphatase (42-121) IU/L Total Protein (6.7-8.2) g/dL Albumin (3.2-5.5) g/dL Globulin (2.1-4.2) g/dL Albumin/Globulin Ratio (1.0-2.2) Assessment/Plan - Problem List (1) Profound anemia Impression: (1) Profound anemia Conclusion/Plan: it seems pt's HGB is stable at 7.9. pt feels better, and asymptomatic now continue H&H monitor continue lab test, vital monitor surgeon recommend out-pt for colonoscopy pt had total three units of blood continue H&H add ferrous sulf Pt's H&H is 5/15 at ER, profound weakness. transfusion blood iron study, B12, folic acid continue H&H continue lab, monitor hold all pt's home supplements (2) Guaiac positive stools Conclusion/Plan: there is no ulcer at EGD test hold Carafate pt had EGD, there no ulcer at upper GI tract, per surgeon report. 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 reduce PPI to daily will hold Carafet consult with surgeon, will follow up NPO with meds IVF (3) Generalized weakness Conclusion/Plan: pt feels better, more emerge continue PT add OT evaluation and treatment continue PT May be caused profound anemia. 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
[2018-02-22 17:35] LABS: HGB - HEMOGLOBIN 8.8 g/dL (12.0-16.0)
[2018-02-23] MEDS: SODIUM CHLORIDE FLUSH 0.9% 10 ML SYRINGE IVP SCH ×4 (01:10→23:52)
[2018-02-23] MEDS: SODIUM CHLORIDE FLUSH 0.9% 10 ML SYRINGE IVP PRN ×4 (05:54→23:52)
[2018-02-23] MEDS: CEFEPIME 1 GM in SODIUM CHLORIDE 0.9% MINIBAG 100 ML IV SCH (05:54)
[2018-02-23 06:42] LABS: BASOPHILS % (AUTO) 0.4 %; HGB - HEMOGLOBIN 7.8 g/dL (12.0-16.0); LYMPHOCYTES % (AUTO) 30.3 %; MEAN CORPUSCULAR HEMOGLOBIN 33.1 pg (27.0-31.0); MEAN CORPUSCULAR HGB CONC 33.3 g/dL (32.0-36.0); MEAN CORPUSCULAR VOLUME 99.4 fL (81.0-99.0); MEAN PLATELET VOLUME 9.3 fL (7.9-10.8); MONOCYTES % (AUTO) 47.6 %; NEUTROPHILS % (AUTO) 17.7 %; PLT - PLATELET COUNT 66 10^3/uL (130-450); RED BLOOD COUNT 2.35 10^6/uL (4.20-5.40); RED CELL DISTRIBUTION WIDTH 22.7 % (12.0-15.0); WHITE BLOOD COUNT 2.6 x10^3/uL (4.8-10.8)
[2018-02-23 06:50] LABS: ABNORMAL LYMPHS % (MANUAL) 0 %; BAND NEUTROPHILS % (MANUAL) 0 %
[2018-02-23 06:59] LABS: ALBUMIN 2.4 g/dL (3.2-5.5); ALBUMIN/GLOBULIN RATIO 0.6 (1.0-2.2); CALCIUM 7.8 mg/dL (8.5-10.3); CREATININE 0.6 mg/dL (0.4-1.0); TOTAL PROTEIN 6.5 g/dL (6.7-8.2)
[2018-02-23 07:22] LABS: EOSINOPHILS # (MANUAL) 0.1 10^3/uL (0-0.7); LYMPHOCYTES # (MANUAL) 0.9 10^3/uL (1.5-3.5); LYMPHOCYTES % (MANUAL) 33 %; MONOCYTES # (MANUAL) 0.4 10^3/uL (0.0-1.0); NEUTROPHILS % (MANUAL) 20 %; PROMYELOCYTES % (MANUAL) 18 %
[2018-02-23 07:24] LABS: DIFFERENTIAL COMMENT MANUAL DIFFERENTIAL
[2018-02-23 07:26] LABS: NEUTROPHILS # (MANUAL) 0.5 10^3/uL (1.5-6.6)
[2018-02-23] MEDS ORDERED: POTASSIUM CHLORIDE INJ 40 MEQ in SODIUM CHLORIDE 0.9% 480 ML IV ONE (07:27)
[2018-02-23] MEDS ORDERED: CALCIUM GLUCONATE 1,000 MG in SODIUM CHLORIDE 0.9% 50 ML IV ONE (07:29)
[2018-02-23] MEDS ORDERED: POTASSIUM CHLORIDE 20 MEQ TABLET PO ONE (07:35)
[2018-02-23] MEDS: POLYETHYLENE GLYCOL 3350 17 GM PACKET PO SCH (08:06)
[2018-02-23] MEDS: PANTOPRAZOLE 40 MG VIAL IVP SCH (08:47)
[2018-02-23] MEDS ORDERED: cefTRIAXone 1 GM VIAL IVP SCH (09:00)
[2018-02-23] MEDS: VANCOMYCIN INJ 1 GM in SODIUM CHLORIDE 0.9% 250 ML IV SCH ×2 (10:30→20:08)
[2018-02-23] MEDS: POTASSIUM CHLORIDE 20 MEQ TABLET PO SCH (10:31)
[2018-02-23] MEDS: FERROUS SULFATE 325 MG TABLET PO SCH (10:32)
[2018-02-23] MEDS: CALCIUM CITRATE 250 MG TABLET PO SCH ×2 (10:32→11:07)
--- NOTE | 2018-02-23 13:12 | PROVIDER PROGRESS NOTE ---
Subjective - Prog Note Date Prog Note Date: 02/23/18 - Subjective Pt reports feeling: Improved Subjective: pt report she continue to feel better. No fever, chill, chest pain, shortness of breath. Cough is much better controlled. Pt's son called me. I discussed all pt's medical conditions with her son, and answer all his concerns. If pt continue to deteriorate her pancytopenia, then beside of transfusion, pt may need advance care such as bone andrews biopsy, which we can not provide it in here, and transfer pt to other hospital. Current Medications - Current Medications Current Medications: Active Medications Acetaminophen (Tylenol) 650 mg PO Q4HR PRN PRN Reason: Pain 1 to 4 Last Admin: 02/21/18 23:37 Dose: 650 mg Calcium Citrate () 250 mg PO DAILY [facility] Last Admin: 02/23/18 11:07 Dose: Not Given Diphenhydramine HCl (Benadryl) 25 mg PO Q4HR PRN PRN Reason: Allergy Symptoms Last Admin: 02/21/18 04:56 Dose: 25 mg Ferrous Sulfate (Feosol) 325 mg PO DAILYWM [facility] Last Admin: 02/23/18 10:32 Dose: 325 mg Vancomycin HCl 1 gm/ Sodium (Chloride) 250 mls @ 167 mls/hr IV Q12H [facility] Last Infusion: 02/23/18 13:05 Dose: Infused Ceftriaxone Sodium 1 gm/ (Sodium Chloride) 100 mls @ 200 mls/hr IV Q24H [facility] Ondansetron HCl (Zofran Inj) 4 mg IVP Q6HR PRN PRN Reason: Nausea / Vomiting Pantoprazole Sodium (Protonix) 40 mg IVP DAILY [facility] Last Admin: 02/23/18 08:47 Dose: 40 mg Polyethylene Glycol (Miralax) 17 gm PO DAILY [facility] Last Admin: 02/23/18 08:06 Dose: Not Given Potassium Chloride (K-Dur) 20 meq PO DAILYWM [facility] Last Admin: 02/23/18 10:31 Dose: 20 meq Sodium Chloride (Normal Saline Flush 0.9%) 10 ml IVP PRN PRN PRN Reason: NEEDED PER PROVIDER ORDERS Last Admin: 02/23/18 08:48 Dose: 10 ml Sodium Chloride (Normal Saline Flush 0.9%) 10 ml IVP 0100,0900,1700 [facility] Last Admin: 02/23/18 08:07 Dose: Not Given Cholecalciferol (Vitamin D3) [Vitamin D3] 10,000 units PO DAILY 02/20/18 Objective - Vital Signs/Intake & Output Reviewed Vital Signs: Yes Vital Signs: Vital Signs x48h Temp Pulse Resp BP Pulse Ox 02/23/18 08:00 36.6 C 101 H 18 125/54 L 92 Intake & Output: Intake & Output 02/20/18 02/21/18 02/22/18 02/23/18 23:59 23:59 23:59 23:59 Intake Total 500 2985 2270 1262.083 Output Total 1100 400 Balance -600 2585 2270 1262.083 - Objective General Appearance: positive: No acute distress, Alert. negative: Lethargic Eyes Bilateral: positive: Normal inspection, PERRL, No lid inflammation, Conjunctivae nml ENT: positive: ENT inspection nml, Pharynx nml, No signs of dehydration. negative: Purulent nasal drainage, Pharyngeal erythema, Oral lesions, Dry mucous membranes Neck: positive: Nml inspection, Thyroid nml, No JVD, Trachea midline. negative : Thyromegaly, Lymphadenopathy (R), Lymphadenopathy (L), Stiff neck, Carotid bruit, Swelling/bruising, Tracheal deviation Respiratory: positive: Chest non-tender, No respiratory distress, Other ( crackers sound in bilateral lower lobes of lung). negative: Wheezes, Rales Cardiovascular: positive: Regular rate & rhythm, No murmur, No gallop, Tachycardia. negative: Extrasystoles, Bradycardia, JVD present, Systolic murmur , Diastolic murmur Peripheral Pulses: 2+ Radial (R), 2+ Radial (L), 2+ Dorsalis pedis (R), 2+ Dorsalis pedis (L) Abdomen: positive: Non-tender, No organomegaly, Nml bowel sounds, No distention. negative: Tenderness, Guarding, Rebound Back: positive: Nml inspection. negative: CVA tenderness (R), CVA tenderness (L ) Skin: positive: Color nml, No rash, Warm, Dry. negative: Cyanosis, Diaphoresis , Pallor Extremities: positive: Non-tender, Full ROM, Nml appearance. negative: Calf tenderness, Joint swelling, Ariana's sign/cords Neurologic/Psychiatric: positive: Oriented x3, Motor nml, Sensation nml, Mood/ affect nml. negative: Weakness, Sensory loss, Facial droop, Slurred/abnml speech, Depressed mood/affect - Lab Results Fish Bones: 02/23/18 05:37 02/23/18 05:37 Other Labs: Lab Results x24hrs 02/23/18 02/23/18 02/22/18 Range/Units 05:37 05:37 17:15 WBC 2.6 L (4.8-10.8) x10^3/uL RBC 2.35 L (4.20-5.40) 10^6/uL Hgb 7.8 L 8.8 L (12.0-16.0) g/dL Hct 23.4 L 26.1 L (37.0-47.0) % MCV 99.4 H (81.0-99.0) fL MCH 33.1 H (27.0-31.0) pg MCHC 33.3 (32.0-36.0) g/dL RDW 22.7 H (12.0-15.0) % Plt Count 66 L (130-450) 10^3/uL MPV 9.3 (7.9-10.8) fL Neut # Not Reportable Lymph # Not Reportable [place] # Not Reportable Eos # Not Reportable Baso # Not Reportable Absolute Nucleated RBC Not Reportable Total Counted 100 Band Neuts % (Manual) 0 (0 - 10) % Abnorm Lymph % (Manual) 0 % Promyelocytes % 18 H ( - 0) % Blast Cells % 8 H* % Nucleated RBC % Not Reportable Neutrophils # (Manual) 0.5 L* (1.5-6.6) 10^3/uL Lymphocytes # (Manual) 0.9 L (1.5-3.5) 10^3/uL Monocytes # (Manual) 0.4 (0.0-1.0) 10^3/uL Eosinophils # (Manual) 0.1 (0-0.7) 10^3/uL Basophils # (Manual) 0.0 (0-0.1) 10^3/uL Differential Comment MANUAL DIFFERENTIAL RBC Morph Micro Appear 1+ MACROCYTOSIS (NORMAL) Sodium 136 (135-145) mmol/L Potassium 3.2 L (3.5-5.0) mmol/L Chloride 103 (101-111) mmol/L Carbon Dioxide 25 (21-32) mmol/L Anion Gap 8.0 (6-13) BUN 11 (6-20) mg/dL Creatinine 0.6 (0.4-1.0) mg/dL Estimated GFR (MDRD) 97 (>89) Glucose 101 H (70-100) mg/dL Calcium 7.8 L (8.5-10.3) mg/dL Total Bilirubin 1.0 (0.2-1.0) mg/dL AST 25 (10-42) IU/L ALT 13 (10-60) IU/L Alkaline Phosphatase 30 L (42-121) IU/L Total Protein 6.5 L (6.7-8.2) g/dL Albumin 2.4 L (3.2-5.5) g/dL Globulin 4.1 (2.1-4.2) g/dL Albumin/Globulin Ratio 0.6 L (1.0-2.2) Assessment/Plan - Problem List (1) Profound anemia Impression: (1) Profound anemia Conclusion/Plan: pt's HGB is 7.8, and feel better than before, and relative stable continue H&H, if continue to drop, beside of transfusion, pt may need advance care and transfer to other hospital. it seems pt's HGB is stable at 7.9. pt feels better, and asymptomatic now continue H&H monitor continue lab test, vital monitor surgeon recommend out-pt for colonoscopy pt had total three units of blood continue H&H add ferrous sulf Pt's H&H is 5/15 at ER, profound weakness. transfusion blood iron study, B12, folic acid continue H&H continue lab, monitor hold all pt's home supplements (2) Guaiac positive stools Conclusion/Plan: new test result reveal negative guaiace test, no more GI bleeding surgeon prefer pt do out-pt colonoscopy order Guaiac test again to make sure no more blood stool continue H&H there is no ulcer at EGD test hold Carafate pt had EGD, there no ulcer at upper GI tract, per surgeon report. 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 reduce PPI to daily will hold Carafet consult with surgeon, will follow up NPO with meds IVF (3) Generalized weakness Conclusion/Plan: pt feel better, continue PT/OT pt feels better, more emerge continue PT add OT evaluation and treatment continue PT May be caused profound anemia. transfusion of blood PT consult (4) Hypokalemia Conclusion/Plan: today K is 3.2, continue replacement replacement of potassium daily lab monitor (5) pneumonia/Cough/multiple patchy airspace alveolar opacities, and lymphadenopathy Pt is room air with 93% Sats of O2 continue treat with antibiotics daily lab monitor, vital monitor follow up out-pt bill of materials clerk continue treatment with antibiotics follow up bill of materials clerk as out-pt follow up blood and sputum culture CT of chest indicate pneumonia order lactic acid add cefepim and Levaquin follow up culture if add anti-fungal (6) thrombocytopenia/pancytopenia/blast cell lab test result reveals some deteriorate switch antibiotic to Rocephin and Vancomycin, for r/o possible hematologic suppression side effect continue lab test monitor. pt may need transfer for advance care if continue to deteriorate. Qualifiers: Anemia type: other cause Other causes of anemia: acute posthemorrhagic Qualified Code(s): D62 - Acute posthemorrhagic anemia
[2018-02-23] MEDS: cefTRIAXone 1 GM in SODIUM CHLORIDE 0.9% MINIBAG 100 ML IV SCH (13:13)
[2018-02-23 17:04] LABS: HGB - HEMOGLOBIN 7.8 g/dL (12.0-16.0)
[2018-02-24 05:56] LABS: BASOPHILS % (AUTO) 0.4 %; EOSINOPHILS % (AUTO) 6.1 %; HGB - HEMOGLOBIN 7.7 g/dL (12.0-16.0); LYMPHOCYTES % (AUTO) 31.5 %; MEAN CORPUSCULAR HEMOGLOBIN 33.3 pg (27.0-31.0); MEAN CORPUSCULAR HGB CONC 33.5 g/dL (32.0-36.0); MEAN CORPUSCULAR VOLUME 99.5 fL (81.0-99.0); MEAN PLATELET VOLUME 8.7 fL (7.9-10.8); MONOCYTES % (AUTO) 47.5 %; NEUTROPHILS % (AUTO) 14.5 %; PLT - PLATELET COUNT 46 10^3/uL (130-450); RED CELL DISTRIBUTION WIDTH 21.7 % (12.0-15.0); WHITE BLOOD COUNT 2.2 x10^3/uL (4.8-10.8)
[2018-02-24 05:59] LABS: INR 1.5 (0.8-1.2); PT - PROTHROMBIN TIME 17.2 secs (9.9-12.6)
[2018-02-24 06:05] LABS: ABNORMAL LYMPHS % (MANUAL) 0 %
[2018-02-24 06:10] LABS: ALBUMIN 2.5 g/dL (3.2-5.5); ALBUMIN/GLOBULIN RATIO 0.7 (1.0-2.2); CALCIUM 7.9 mg/dL (8.5-10.3); CREATININE 0.5 mg/dL (0.4-1.0); TOTAL PROTEIN 6.3 g/dL (6.7-8.2)
[2018-02-24 06:29] LABS: BAND NEUTROPHILS % (MANUAL) 1 %; EOSINOPHILS # (MANUAL) 0.1 10^3/uL (0-0.7); LYMPHOCYTES # (MANUAL) 0.9 10^3/uL (1.5-3.5); LYMPHOCYTES % (MANUAL) 40 %; MONOCYTES # (MANUAL) 0.2 10^3/uL (0.0-1.0); NEUTROPHILS % (MANUAL) 20 %; PROMYELOCYTES % (MANUAL) 18 %
[2018-02-24 06:30] LABS: DIFFERENTIAL COMMENT MANUAL DIFFERENTIAL; PLATELET ESTIMATE, MANUAL DECREASED (<130,000) (NORMAL)
[2018-02-24 06:32] LABS: NEUTROPHILS # (MANUAL) 0.5 10^3/uL (1.5-6.6)
[2018-02-24] MEDS ORDERED: POTASSIUM CHLORIDE 20 MEQ TABLET PO ONE (07:31)
[2018-02-24 08:08] VITALS: BP 116/54
[2018-02-24] MEDS: FERROUS SULFATE 325 MG TABLET PO SCH (09:08)
[2018-02-24] MEDS: CALCIUM CITRATE 250 MG TABLET PO SCH (09:08)
[2018-02-24] MEDS: POTASSIUM CHLORIDE 20 MEQ TABLET PO SCH (09:09)
[2018-02-24] MEDS: SODIUM CHLORIDE FLUSH 0.9% 10 ML SYRINGE IVP SCH (09:11)
[2018-02-24] MEDS: PANTOPRAZOLE 40 MG VIAL IVP SCH (09:11)
[2018-02-24] MEDS: POLYETHYLENE GLYCOL 3350 17 GM PACKET PO SCH (09:15)
[2018-02-24] MEDS: VANCOMYCIN INJ 1 GM in SODIUM CHLORIDE 0.9% 250 ML IV SCH (09:22)
[2018-02-24] MEDS: POTASSIUM CHLOR 10 MEQ/100 ML 10 MEQ/100 ML BAG IV SCH ×2 (09:23→10:40)
[2018-02-24] MEDS: cefTRIAXone 1 GM in SODIUM CHLORIDE 0.9% MINIBAG 100 ML IV SCH (10:53)
--- NOTE | 2018-02-24 11:48 | DISCHARGE SUMMARY ---
Discharge Summary Discharge Date: 02/24/18 Discharging Provider: HUI Code Status: Do Not Attempt Resuscitation Condition at Discharge: Poor Discharge Disposition: 02 Transfer Acute Care Hosp Discharge Facility Name: [facility] - DIAGNOSES Admission Diagnoses: (1) Profound anemia (2) Guaiac positive stools (3) Generalized weakness (4) Hypokalemia (5) Cough Discharge Diagnoses with Status of Each Condition: (1) pancytopenia pt is transferred to [facility] for advance care (2) pneumonia improved. cough is significantly controlled. 93% Sats of O2 at room air, continue to be managed at [facility] (3) Generalized weakness pt state she feel better and improved, continue to be managed at [facility] (4) Hypokalemia replaced with daily 60-80 meq potassium. today K is 3.3 (5) Cough cough is significantly controlled - HPI History of Present Illness: refer from my HPI on pt as the following: This is a 77-year-old female with PMH of Depression, and Herpes Zoster, who, otherwise health until the last , presented to the emergency department complaining of profound weakness, a chronic cough and weight loss. Pt report she got sick in the last . She visited her naturopathic provider who started her on multiple supplementation including [id number] Vitamin C. Pt report she has been profound fatigue since the . She report she has been chronic cough with clear sputum as well. She state she lost weight between 5- 10 Lb since the , and loss of appetite, and some night sweating as well. She recognize she had dark stools but denies bryan blood in the stools since she had multiple supplementation. She denies fever, chill, chest pain, headache, shortness of breath, abdominal pain, PUD disease, nausea, vomiting, diarrhea, vision issue. She denies to take any NSAIDs. She denies recent travel as well. In the emergency department her H&H was noted to be 5.3/ 15.4. The occult blood stool test was positive in the ER. chest x-ray reveals multiple moderate patchy opacities in the bilateral upper lobes, most severe at the lung apices, which could represent infectious/inflammatory/fibrosis, lung malignancy is not excluded. Pt is currently hemodynamically stable with a normal blood pressure and heart rate. Pt was admitted to the medical service and presumed GI bleeding. - HOSPITAL COURSE Hospital Course: Pt was admitted for profound weakness. pt was found to have 5.3 HGB at admission. Pt was transfusion of 3 unit blood. pt had EGD done at this hospital which did not show ulcer. Pt had severe pancytopenia with Blast cells. Pt had cough at the admission. CXR and CT of chest indicates pneumonia. Pt was treated with antibiotics. The new occult blood stool study reveals negative for bloody. Pt was accepted and transferred to [facility] for advance care - ALLERGIES Allergies/Adverse Reactions: Allergies Allergy/AdvReac Type Severity Reaction Status Date / Time No Known Drug Allergies Allergy Verified 02/20/18 15:27 - MEDICATIONS Home Medications: Ambulatory Orders Medication Instructions Recorded Confirmed Cholecalciferol (Vitamin D3) 10,000 units PO DAILY 02/20/18 02/20/18 [Vitamin D3] - PHYSICAL EXAM AT DISCHARGE General Appearance: positive: No acute distress, Alert. negative: Lethargic Eyes Bilateral: positive: Normal inspection, PERRL, No lid inflammation, Conjunctivae nml ENT: positive: ENT inspection nml, Pharynx nml, No signs of dehydration. negative: Purulent nasal drainage, Pharyngeal erythema, Oral lesions, Dry mucous membranes Neck: positive: Nml inspection, Thyroid nml, No JVD, Trachea midline. negative : Thyromegaly, Lymphadenopathy (R), Lymphadenopathy (L), Stiff neck, Carotid bruit, Swelling/bruising, Tracheal deviation Respiratory: positive: Chest non-tender, No respiratory distress, Rhonchi. negative: Wheezes, Rales Cardiovascular: positive: Regular rate & rhythm, No murmur, No gallop. negative : Irregularly irregular, Extrasystoles, Tachycardia, Bradycardia, JVD present, Systolic murmur, Diastolic murmur Peripheral Pulses: positive: 2+ Abdomen: positive: Non-tender, No organomegaly, Nml bowel sounds, No distention. negative: Tenderness, Guarding, Rebound Back: positive: Nml inspection. negative: CVA tenderness (R), CVA tenderness (L ) Skin: positive: Color nml, No rash, Warm, Dry. negative: Cyanosis, Diaphoresis , Pallor Extremities: positive: Non-tender, Full ROM, Nml appearance. negative: Calf tenderness, Joint swelling, Ariana's sign/cords Neurologic/Psychiatric: positive: Oriented x3, Motor nml, Sensation nml. negative: Weakness, Sensory loss, Facial droop, Slurred/abnml speech, Depressed mood/affect - LABS Result Diagrams: 02/24/18 05:08 02/24/18 05:08 - FOLLOW UP Follow Up: transfer to [facility] for advance care today. - TIME SPENT Time Spent in Discharge (Minutes): 50
== END 2018-02-24 13:00 | disposition short-term general hospital (02) | DRG 808 ==
LOC: ED 15:25 → MS2 18:11
PROVIDERS: ADMIT Internal Medicine; ATTEND Nurse Practitioner Gerontology
PROC: 30233K1 Transfusion of Nonautologous Frozen Plasma into Peripheral Vein, Percutaneous Approach (ICD-10-PCS; 2018-02-21)
PROC: 30233N1 Transfusion of Nonautologous Red Blood Cells into Peripheral Vein, Percutaneous Approach (ICD-10-PCS; 2018-02-21)
PROC: 30233R1 Transfusion of Nonautologous Platelets into Peripheral Vein, Percutaneous Approach (ICD-10-PCS; 2018-02-21)
PROC: 0DJ08ZZ Inspection of Upper Intestinal Tract, Via Natural or Artificial Opening Endoscopic (ICD-10-PCS; principal; 2018-02-21 11:45)
DX: D61.818 Other pancytopenia (principal); J18.9 Pneumonia, unspecified organism; D62 Acute posthemorrhagic anemia; R53.1 Weakness; E87.6 Hypokalemia; R19.5 Other fecal abnormalities; F32.9 Major depressive disorder, single episode, unspecified; Z66 Do not resuscitate; Z86.19 Personal history of other infectious and parasitic diseases
CPT/HCPCS: 36415; 71046; 71260; 80048; 80053; 81001; 81003; 81599; 82270; 82607; 82652; 82746; 83540; 83605; 83690; 83735; 84443; 84466; 85014; 85018; 85025; 85610; 85730; 86850; 86900; 86901; 86920; 87040; 87070; 87086; 87205; 93005; 99283; 99284; 99285

== ENCOUNTER 2018-02-24 12:56 | Outpatient (CLI) | payer SELFPAY | END 2018-02-24 12:57 | disposition short-term general hospital (02) | LOC: EMS 12:56 | PROVIDERS: ATTEND Surgery | DX: D61.818 Other pancytopenia (principal); J18.9 Pneumonia, unspecified organism | CPT/HCPCS: A0425; A0428 ==